=== PATIENT | male | born 1960 | race Caucasian/White ===

== ENCOUNTER 2023-08-18 11:05 | Emergency (ER) | payer MEDICAID ==
[~2023-08-18] VITALS: Ht 165.1 cm; Wt 65.8 kg
[2023-08-18 11:22] VITALS: BP 156/90; PULSE 75; RESP 18; TEMP 98.8; O2SAT 98
[2023-08-18] MEDS ORDERED: IBUP-2213 PO (12:45)
[2023-08-18] MEDS ORDERED: ACET-8905 PO (12:45)
[2023-08-18] MEDS ORDERED: ERYT5OIN51 OP (12:45)
[2023-08-18] MEDS: TETRACAINE HCL/PF 0.5% OPTH 4 ML BTL OP ONE (12:47)
[2023-08-18 12:56] VITALS: BP 160/88; PULSE 68; RESP 20; TEMP 98.1; O2SAT 100
== END 2023-08-18 12:56 | disposition home or self-care (01) ==
LOC: MED 11:05
DX: T15.01XA Foreign body in cornea, right eye, initial encounter (principal); R03.0 Elevated blood-pressure reading, without diagnosis of hypertension; X58.XXXA Exposure to other specified factors, initial encounter; Y93.89 Activity, other specified; Y92.89 Other specified places as the place of occurrence of the external cause; Y99.9 Unspecified external cause status
CPT/HCPCS: 65222; 99283; 99284